=== PATIENT | male | born 1955 | race Two or more races ===

== ENCOUNTER 2024-01-02 01:50 | Emergency (ER) | payer MEDICARE ==
[~2024-01-02] VITALS: Ht 170.2 cm; Wt 80.4 kg
[2024-01-02 02:34] LABS: BASOPHILS # (AUTO) 0.1 K/UL (0.0-0.2); BASOPHILS % (AUTO) 0.9 % (0.0-2.0); EOSINOPHILS # (AUTO) 0.2 K/uL (0.0-0.7); EOSINOPHILS % (AUTO) 3.1 % (0.0-7.0); HEMOGLOBIN 12.5 g/dL (12.5-16.3); LYMPHOCYTES # (AUTO) 1.6 K/uL (0.8-4.8); LYMPHOCYTES % (AUTO) 24.2 % (20.5-51.5); MEAN CORPUSCULAR HEMOGLOBIN 30.4 uug (23.8-33.4); MEAN CORPUSCULAR HGB CONC 34 g/dL (32.5-36.3); MEAN CORPUSCULAR VOLUME 90.3 fL (73.0-96.2); MONOCYTES # (AUTO) 0.9 K/uL (0.1-1.30); MONOCYTES % (AUTO) 14.1 % (0.0-11.0); NEUTROPHILS # (AUTO) 3.7 K/uL (1.8-8.9); NEUTROPHILS % (AUTO) 57.7 % (38.5-71.5); PLATELET COUNT (AUTO) 269 K/uL (152-348); RED CELL DISTRIBUTION WIDTH 16.2 % (12.1-16.2); WHITE BLOOD COUNT (AUTO) 6.5 K/uL (3.6-10.2)
[2024-01-02 02:36] LABS: DIFFERENTIAL COMMENT 1
[2024-01-02 02:44] LABS: CALCIUM 8.6 mg/dL (8.5-10.1); CREATININE 1.2 mg/dL (0.6-1.3)
[2024-01-02 02:57] LABS: ALBUMIN 3.3 g/dL (3.4-5.0); BILIRUBIN,TOTAL 0.5 mg/dL (0.2-1.0); TOTAL PROTEIN, SERUM 6.7 g/dL (6.4-8.2)
[2024-01-02] MEDS ORDERED: ONDANSETRON 4 MG/2 ML VIAL ONE ×2 (03:01→03:04)
[2024-01-02] MEDS ORDERED: MORPHINE SULFATE 2 MG/1 ML DISP.SYRIN ONE (03:01)
[2024-01-02] MEDS: ONDANSETRON 4 MG/2 ML VIAL IV ONE (03:28)
[2024-01-02] MEDS: MORPHINE SULFATE 2 MG/1 ML DISP.SYRIN IV ONE (03:28)
[2024-01-02] MEDS ORDERED: ONDA4TAB5 PO (05:44)
[2024-01-02 06:05] VITALS: BP 121/65; TEMP 98.6; O2SAT 99
== END 2024-01-02 06:06 | disposition home or self-care (01) ==
LOC: ER 01:53
DX: R11.0 Nausea (principal); M54.2 Cervicalgia; Z95.0 Presence of cardiac pacemaker; Z79.899 Other long term (current) drug therapy
CPT/HCPCS: 99285; 70490; 96374; 96375; 80053; 83880; 83690; 85025; 84484; 36415; 71250; 74176; 83605; J2405 ×2; J2270; A4606; A4663

== ENCOUNTER 2024-08-27 14:39 | Inpatient (IN) | payer MEDICARE, OTHER ==
[~2024-08-27] VITALS: Ht 162.6 cm; Wt 78.5 kg
[~2024-08-27 14:39] MED LIST: ONDA4TAB5 PO
[2024-08-27 15:33] LABS: BASOPHILS % (AUTO) 0.6 % (0.0-2.0); EOSINOPHILS % (AUTO) 0.6 % (0.0-7.0); HEMATOCRIT 34.5 % (36.7-47.1); HEMOGLOBIN 11.3 g/dL (12.5-16.3); LYMPHOCYTES # (AUTO) 1.9 K/uL (0.8-4.8); LYMPHOCYTES % (AUTO) 31.6 % (20.5-51.5); MEAN CORPUSCULAR HEMOGLOBIN 27.8 uug (23.8-33.4); MEAN CORPUSCULAR HGB CONC 33 g/dL (32.5-36.3); MONOCYTES # (AUTO) 0.9 K/uL (0.1-1.30); MONOCYTES % (AUTO) 14.8 % (0.0-11.0); NEUTROPHILS # (AUTO) 3.1 K/uL (1.8-8.9); NEUTROPHILS % (AUTO) 52.4 % (38.5-71.5); PLATELET COUNT (AUTO) 296 K/uL (152-348); RED BLOOD CELL COUNT(AUTO) 4.05 MIL/uL (4.06-5.63); RED CELL DISTRIBUTION WIDTH 16.3 % (12.1-16.2); WHITE BLOOD COUNT (AUTO) 5.9 K/uL (3.6-10.2)
[2024-08-27 15:34] LABS: DIFFERENTIAL COMMENT 1
[2024-08-27 15:51] LABS: ALANINE AMINOTRANSFERASE 26 U/L (16-63); ALBUMIN 2.9 g/dL (3.4-5.0); ALKALINE PHOSPHATASE 65 U/L (50-136); ASPARTATE AMINOTRANSFERASE 23 U/L (15-37); BILIRUBIN,DIRECT 0.1 mg/dL (0.0-0.2); BILIRUBIN,TOTAL 0.3 mg/dL (0.2-1.0); CALCIUM 8.4 mg/dL (8.5-10.1); CHLORIDE 105 mmol/L (98-107); CREATININE 1.5 mg/dL (0.6-1.3); GLUCOSE 110 mg/dL (74-106); POTASSIUM 3.9 mmol/L (3.5-5.1); SODIUM SERUM 146 mmol/L (136-145); TOTAL PROTEIN, SERUM 7.2 g/dL (6.4-8.2); UREA NITROGEN, BLOOD 25 mg/dL (7-18)
[2024-08-27 15:55] LABS: *BILIRUBIN,URIN NEGATIVE (NEGATIVE); *BLOOD, URINE NEGATIVE (NEGATIVE); *CLARITY,URINE CLEAR (CLEAR); *COLOR,URINE YELLOW (YELLOW); *KETONES,URINE NEGATIVE (NEGATIVE); *PROTEIN,URINE NEGATIVE (NEGATIVE); *UROBILINOGEN,URINE 0.2 E.U./dl (NORMAL); LEUKOCYTE ESTERASE ,URINE NEGATIVE (NEGATIVE); NITRITE, URINE NEGATIVE (NEGATIVE); PH,URINE 5.5 (5.0-8.0); UGLUCOSE NEGATIVE (NEGATIVE)
[2024-08-27 15:57] LABS: ETHANOL < 3 MG/DL (0-10)
[2024-08-27 15:58] LABS: ACETAMINOPHEN < 2.0 ug/mL (10-30)
[2024-08-27 16:00] LABS: CARBON DIOXIDE 31 mmol/L (21-32)
[2024-08-27 16:06] LABS: *AMPHETAMINE, URINE NEGATIVE (NEGATIVE); *BARBITURATE, URINE NEGATIVE (NEGATIVE); *BENZODIAZEPINE, URINE NEGATIVE (NEGATIVE); *CANNABINOID, URINE NEGATIVE (NEGATIVE); *COCCAINE, URINE NEGATIVE (NEGATIVE); *OPIATE, URINE NEGATIVE (NEGATIVE); *PHENCYCLIDINE SCREEN,URINE NEGATIVE (NEGATIVE); FENTANYL, URINE NEGATIVE (NEGATIVE)
[2024-08-27] MEDS ORDERED: CARV6.252 PO (16:50)
[2024-08-27] MEDS ORDERED: APIX5TAB PO (16:50)
[2024-08-27] MEDS ORDERED: ACET325C7 PO (16:50)
[2024-08-27] MEDS ORDERED: DIVA250T4 PO (16:50)
[2024-08-27] MEDS ORDERED: LORA-259 PO (16:50)
[2024-08-27] MEDS ORDERED: FURO40TA5 PO (16:50)
[2024-08-27] MEDS ORDERED: OLAN2.5T3 PO (16:50)
[2024-08-27] MEDS ORDERED: ACET-2605 PO (16:50)
[2024-08-27] MEDS ORDERED: POTA10CA43 PO (16:50)
[2024-08-27] MEDS ORDERED: ZOLP5TAB2 PO (16:50)
[2024-08-27] MEDS ORDERED: PANT40TA2 PO (16:50)
[2024-08-27] MEDS ORDERED: MAG355OR18 PO (16:50)
[2024-08-27] MEDS ORDERED: EZET10TA15 PO (16:50)
[2024-08-27] MEDS ORDERED: CLOT15CR5 TP (16:50)
[2024-08-27] MEDS ORDERED: MAGN400O6 PO (16:50)
[2024-08-27] MEDS ORDERED: LACT10SO58 PO (16:50)
[2024-08-27] MEDS ORDERED: HYDR-3980 PO (16:50)
[2024-08-27] MEDS ORDERED: CALC-494 PO (16:50)
[2024-08-27] MEDS ORDERED: ATOR80TA PO (16:50)
[2024-08-27] MEDS ORDERED: KETO15CR2 TP (16:50)
[2024-08-27] MEDS ORDERED: METF-440 PO (16:50)
[2024-08-27] MEDS ORDERED: PROCHLORPERAZINE MALEATE 5 MG TABLET ONE (17:17)
[2024-08-27] MEDS: PROCHLORPERAZINE MALEATE 5 MG TABLET PO ONE ×2 (17:23)
[2024-08-27] MEDS ORDERED: MAG HYDROX/AL HYDROX/SIMETH 30 ML LIQUID UDC ONE (20:00)
[2024-08-27] MEDS ORDERED: DICYCLOMINE HCL LIQ 10 MG/5 ML UDC ONE (20:00)
[2024-08-27] MEDS ORDERED: LIDOCAINE VISCUS 2% 15 ML UDC ONE (20:00)
[2024-08-27] MEDS: LIDOCAINE VISCUS 2% 15 ML UDC MM ONE (20:04)
[2024-08-27] MEDS: MAG HYDROX/AL HYDROX/SIMETH 30 ML LIQUID UDC PO ONE (20:04)
[2024-08-27] MEDS: DICYCLOMINE HCL LIQ 10 MG/5 ML UDC PO ONE (20:04)
[2024-08-27] MEDS ORDERED: MAGNESIUM HYDROXIDE 30 ML LIQUID UDC PO PRN (21:15)
[2024-08-27 21:35] VITALS: BP 131/79; TEMP 98.2; O2SAT 97
[2024-08-27] MEDS: BLOOD SUGAR DIAGNOSTIC 1 EACH STRIP VI ONE (21:45)
[2024-08-27] MEDS: LORAZEPAM 0.5 MG TABLET PO PRN (22:20)
[2024-08-27] MEDS: TEMAZEPAM 7.5 MG CAPSULE PO PRN (23:00)
[2024-08-28] MEDS: MAG HYDROX/AL HYDROX/SIMETH 30 ML LIQUID UDC PO PRN (04:02)
[2024-08-28 08:02] VITALS: BP 145/62; TEMP 98.3; O2SAT 100
[2024-08-28] MEDS: ACETAMINOPHEN 325 MG TABLET PO PRN (09:19)
[2024-08-28] MEDS ORDERED: POTA-10 PO (09:55)
[2024-08-28] MEDS ORDERED: DEXTROSE 50% 50 ML DISP.SYRIN IV PRN ×2 (11:45)
[2024-08-28] MEDS ORDERED: INSULIN REGULAR, HUMAN 1000 UNIT/10 ML VIAL SQ PRN (11:45)
[2024-08-28] MEDS: LORAZEPAM 0.5 MG TABLET PO PRN (12:24)
[2024-08-28] MEDS: DIVALPROEX 250 MG TABLET.DR PO SCH ×2 (13:16→20:22)
[2024-08-28] MEDS: HYDROCODONE/APAP 10-325 MG TABLET PO PRN (14:48)
[2024-08-28 16:00] VITALS: BP 140/84; TEMP 97.6; O2SAT 100
[2024-08-28] MEDS ORDERED: ONDANSETRON HCL 4 MG TABLET PO PRN (16:15)
[2024-08-28] MEDS ORDERED: ACETAMINOPHEN ES 500 MG TABLET- SA PATIENTS-PAIN ONLY PO PRN (16:15)
[2024-08-28] MEDS ORDERED: Medication Not On Formulary EA (Calcium Carbonate 1,000 MG) PO PRN (16:15)
[2024-08-28] MEDS ORDERED: BLOOD SUGAR DIAGNOSTIC 1 EACH STRIP VI SCH (16:30)
[2024-08-28] MEDS ORDERED: CARVEDILOL 6.25 MG TABLET PO SCH (16:30)
[2024-08-28] MEDS: BLOOD SUGAR DIAGNOSTIC 1 EACH STRIP VI SCH (16:40)
[2024-08-28] MEDS: LACTULOSE 20 G/30 ML LIQUID UDC PO SCH (16:55)
[2024-08-28] MEDS: METFORMIN HCL 500 MG TABLET PO SCH (16:56)
[2024-08-28] MEDS ORDERED: APIXABAN 5 MG TABLET PO SCH (17:00)
[2024-08-28] MEDS: CARVEDILOL 6.25 MG TABLET PO SCH (17:50)
[2024-08-28 20:00] VITALS: BP 135/80; TEMP 97; O2SAT 99
[2024-08-28] MEDS: OLANZAPINE 2.5 MG TABLET PO SCH (20:21)
[2024-08-28] MEDS: KETOCONAZOLE 2% CREAM 30 GM TUBE TP SCH (20:21)
[2024-08-28] MEDS: ATORVASTATIN 40 MG TABLET PO SCH (20:21)
[2024-08-28] MEDS: EZETIMIBE 10 MG TABLET PO SCH (20:21)
[2024-08-28] MEDS: DOCUSATE SODIUM 100 MG CAPSULE PO SCH (20:21)
[2024-08-28] MEDS: APIXABAN 5 MG TABLET PO SCH (20:22)
[2024-08-28] MEDS: CLOTRIMAZOLE/BETAMET DIPROP CREAM 15 GM TUBE TP SCH (20:33)
[2024-08-28] MEDS ORDERED: Medication Not On Formulary EA (Atorvastatin Calcium (Lipitor) 80 MG) PO SCH (21:00)
[2024-08-28] MEDS: ACETAMINOPHEN 500 MG TABLET PO PRN (21:23)
[2024-08-29] MEDS: TEMAZEPAM 7.5 MG CAPSULE PO PRN (00:24)
[2024-08-29] MEDS: PANTOPRAZOLE SODIUM 40 MG TABLET.DR PO SCH (06:16)
[2024-08-29] MEDS ORDERED: PANTOPRAZOLE SODIUM 40 MG TABLET.DR PO SCH (07:00)
[2024-08-29 08:02] VITALS: BP 140/68; TEMP 98; O2SAT 98
[2024-08-29] MEDS: MIRALAX 17 GM POWD.PACK PO SCH (08:57)
[2024-08-29] MEDS: POTASSIUM CHLORIDE 10 MEQ TAB.PRT.SR PO SCH (08:57)
[2024-08-29] MEDS: FUROSEMIDE 40 MG TABLET PO SCH (08:58)
[2024-08-29] MEDS ORDERED: EZETIMIBE 10 MG TABLET PO SCH (09:00)
[2024-08-29] MEDS: CALCIUM CARBONATE 500 MG TAB.CHEW PO PRN (11:14)
[2024-08-29 16:02] VITALS: BP 134/88; TEMP 98.3; O2SAT 100
[2024-08-29 19:56] VITALS: BP 119/87; TEMP 98.4; O2SAT 98
[2024-08-30 07:47] VITALS: BP 114/48; TEMP 98; O2SAT 96
[2024-08-30 15:36] VITALS: BP 127/74; TEMP 98; O2SAT 100
[2024-08-30 22:05] VITALS: BP 102/58; TEMP 98.8; O2SAT 100
[2024-08-31 08:02] VITALS: BP 124/76; TEMP 97.5; O2SAT 96
[2024-08-31 16:02] VITALS: BP 128/86; TEMP 97.8; O2SAT 100
[2024-08-31 20:00] VITALS: BP 110/71; TEMP 98.8; O2SAT 95
[2024-09-01 08:02] VITALS: BP 131/79; TEMP 98.3; O2SAT 97
[2024-09-01 16:02] VITALS: BP 112/71; TEMP 97.8; O2SAT 98
[2024-09-01 20:00] VITALS: BP 120/64; TEMP 98.9; O2SAT 95
[2024-09-01] MEDS: OLANZAPINE 5 MG TABLET PO SCH (20:36)
[2024-09-01] MEDS ORDERED: OLANZAPINE 2.5 MG TABLET PO SCH (21:00)
[2024-09-02 07:49] VITALS: BP 119/58; TEMP 98.2; O2SAT 96
[2024-09-02 15:54] VITALS: BP 94/64; TEMP 98; O2SAT 96
[2024-09-02 20:00] VITALS: BP 106/60; TEMP 98.1; O2SAT 96
[2024-09-02] MEDS: DIVALPROEX 500 MG TABLET.DR PO SCH (20:30)
[2024-09-03 09:13] VITALS: BP 119/76; TEMP 98; O2SAT 96
[2024-09-03] MEDS: DIVALPROEX 500 MG TABLET.DR PO SCH (09:41)
[2024-09-03 15:25] VITALS: BP 90/52; TEMP 98; O2SAT 98
[2024-09-03 20:00] VITALS: BP 111/62; TEMP 98.8; O2SAT 94
[2024-09-04 08:02] VITALS: BP 116/54; TEMP 98.3; O2SAT 95
[2024-09-04 08:02] LABS: CALCIUM 8.4 mg/dL (8.5-10.1); CREATININE 1.5 mg/dL (0.6-1.3); POTASSIUM 3.6 mmol/L (3.5-5.1)
[2024-09-04 16:02] VITALS: BP 97/49; TEMP 97.8; O2SAT 98
[2024-09-04] MEDS: busPIRone 5 MG TABLET PO SCH (16:43)
[2024-09-04 20:00] VITALS: BP 104/66; TEMP 99.1; O2SAT 96
[2024-09-04 20:25] VITALS: TEMP 98.6
[2024-09-05 07:57] VITALS: BP 96/51; TEMP 98; O2SAT 98
[2024-09-05 16:31] VITALS: BP 112/62; TEMP 98.2; O2SAT 96
[2024-09-05 20:33] VITALS: BP 116/65; TEMP 97.5; O2SAT 96
[2024-09-06 08:13] VITALS: BP 119/54; TEMP 98.3; O2SAT 95
[2024-09-06 15:30] VITALS: BP 103/63; TEMP 97.3; O2SAT 95
[2024-09-06 20:16] VITALS: BP 115/58; TEMP 98.7; O2SAT 96
[2024-09-07 08:00] VITALS: BP 115/66; TEMP 98.2; O2SAT 100
[2024-09-07 16:00] VITALS: BP 135/73; TEMP 97.8; O2SAT 100
[2024-09-07 20:00] VITALS: BP 105/65; TEMP 98; O2SAT 100
== END 2024-09-07 19:45 | DRG 885 ==
LOC: ER 14:39 → GPS 15:00
PROVIDERS: ADMIT Psychiatry & Neurology Psychosomatic Medicine; ATTEND Internal Medicine
DX: F20.9 Schizophrenia, unspecified (principal); N18.9 Chronic kidney disease, unspecified; N17.0 Acute kidney failure with tubular necrosis; E44.0 Moderate protein-calorie malnutrition; E87.0 Hyperosmolality and hypernatremia; K51.90 Ulcerative colitis, unspecified, without complications; I50.32 Chronic diastolic (congestive) heart failure; I48.20 Chronic atrial fibrillation, unspecified; I44.7 Left bundle-branch block, unspecified; E88.09 Other disorders of plasma-protein metabolism, not elsewhere classified; F41.9 Anxiety disorder, unspecified; Z95.0 Presence of cardiac pacemaker; D64.9 Anemia, unspecified; J44.9 Chronic obstructive pulmonary disease, unspecified; K21.9 Gastro-esophageal reflux disease without esophagitis; E11.22 Type 2 diabetes mellitus with diabetic chronic kidney disease; Z79.84 Long term (current) use of oral hypoglycemic drugs; E78.5 Hyperlipidemia, unspecified; F32.9 Major depressive disorder, single episode, unspecified; L21.9 Seborrheic dermatitis, unspecified; Z79.899 Other long term (current) drug therapy; Z79.01 Long term (current) use of anticoagulants
CPT/HCPCS: 36415; 74018; 80164; 84484; 85025; A9150; G0480; J1815; J3490; J8499